=== PATIENT | female | born 1985 | race Caucasian/White ===

== ENCOUNTER 2017-04-09 02:26 | Emergency (ER) | payer OTHER ==
--- NOTE | ~2017-04-09 | EKG ---
PATIENT: CASSANDRA CARDONA UNIT #: [id number] Ventricular Rate: 59 BPM Atrial Rate: 59 BPM P-R Interval: 166 ms QRS Duration: 86 ms Q-T Interval: 446 ms QTC Calculation(Bezet): 441 ms P [place]: 30 degrees Calculated R [place]: 14 degrees Calculated T [place]: 23 degrees Diagnosis Line: Sinus bradycardia with sinus arrhythmia Diagnosis Line: Otherwise normal ECG Diagnosis Line: When compared with ECG of 10-OCT-2015 22:36, Diagnosis Line: Vent. rate has decreased BY 40 BPM Diagnosis Line: Confirmed by ESME PEDERSON MD ([id number]) on Diagnosis Line: 04/09/2017 2:02:58 PM INTERPRETING MD: DACIA CARABALLO
== END 2017-04-09 07:27 | disposition home or self-care (01) ==
LOC: CED 02:26
DX: R55 Syncope and collapse (principal); S30.0XXA Contusion of lower back and pelvis, initial encounter; F17.200 Nicotine dependence, unspecified, uncomplicated; Z88.7 Allergy status to serum and vaccine; W18.39XA Other fall on same level, initial encounter; Y93.89 Activity, other specified; Y92.007 Garden or yard of unspecified non-institutional (private) residence as the place of occurrence of the external cause
CPT/HCPCS: 84703; 93005; 99283

== ENCOUNTER 2017-06-05 15:55 | Emergency (ER) | payer OTHER ==
--- NOTE | ~2017-06-05 | CR142 ---
[facility]. [facility] A Service of [facility] RADIOLOGY TEXT RESULTS PATIENT: CASSANDRA CARDONA LOCATION: SED : 81 UNIT #: [id number] AGE: [address]: Adriana Muller SEX: F ORDER DR: [id number] [address] [address] [id number] E MR#: [id number] Acc #: [id number] NAME: CASSANDRA CARDONA : 1985 SEX: F STUDY DATE/TIME: 06/05/2017 16:12 UNIT: SED ROOM: STUDY DESCRIPTION: CR Hand Min 3 Views Rt Attending Physician: Adriana Muller P.A.-C. Ordering Physician: Adriana Muller P.A.-C. MEDICAL IMAGING REPORT This report is preliminary unless electronic signature is present. EXAM Right hand 3 views 06/05/2017 HISTORY Right hand pain status post fall today at 01:00 p.m., landing on right hand. FINDINGS AP, lateral, and oblique projections of the hand show good mineralization with normal carpal, metacarpal, and phalangeal anatomy without indication of fracture, dislocation, or soft tissue radiopaque foreign body. IMPRESSION Normal hand. Dictated by... Jose Aguirre M.D. THIS IS AN ELECTRONICALLY VERIFIED REPORT Jose Aguirre M.D. at 06/06/2017 10:23 AM KRT/pcl TD: 06/05/2017 20:53 JOB #: [id number] MEDICAL IMAGING REPORT Page 1 of 1
[2017-06-05] MEDS ORDERED: VITAMIN B122500 MC1 (15:58)
== END 2017-06-05 17:15 | disposition home or self-care (01) ==
LOC: SED 15:55
DX: S63.521A Sprain of radiocarpal joint of right wrist, initial encounter (principal); G43.909 Migraine, unspecified, not intractable, without status migrainosus; F17.210 Nicotine dependence, cigarettes, uncomplicated; Z88.7 Allergy status to serum and vaccine; W01.10XA Fall on same level from slipping, tripping and stumbling with subsequent striking against unspecified object, initial encounter; Y92.009 Unspecified place in unspecified non-institutional (private) residence as the place of occurrence of the external cause
CPT/HCPCS: 29125; 73130; 99283

== ENCOUNTER → 2017-07-08 | Outpatient (CLI) | payer OTHER ==
[~2017-07-08] MED LIST: VITAMIN B122500 MC1
--- NOTE | ~2017-07-08 | CT55 ---
[facility] A Service of [facility] & [facility] RADIOLOGY TEXT RESULTS PATIENT: CASSANDRA WHALEY [facility] UNIT #: [id number] AGE: [address]: Shanthi Saucedo SEX: F ORDER DR: [id number] [facility] [address] [place], [place] [address] [id number] O MR#: [id number] [facility] #: [id number] NAME: CASSANDRA WHALEY : 1985 SEX: F STUDY DATE/TIME: 07/08/2017 11:21 UNIT: [facility] ROOM: STUDY DESCRIPTION: CT Chest W Con Attending Physician: Shanthi Palm A.P.R.N. Referring Physician: Shanthi Palm A.P.R.N. Ordering Physician: Shanthi Palm A.P.R.N. Primary Care Physician: Shanthi Palm A.P.R.N. MEDICAL IMAGING REPORT This report is preliminary unless electronic signature is present EXAM Chest CT with contrast, 07/08/2017. INDICATIONS 32-year-old female with a lung nodule on an abdominal CT 1 year ago. Nodule follow up. History of tubal ligation. No history of malignancy. TECHNIQUE Contrast enhanced CT scan chest was performed. This CT exam was performed with one or more of the following radiation dose reduction techniques: automatic exposure control, adjustment of mA and/or kV according to patient size, and iterative reconstruction. COMPARISON CT abdomen and pelvis 10/11/2015. FINDINGS CT CHEST: Included lung bases are clear. There is an 11 mm nodule in the posteromedial left lower lobe that is unchanged from the prior study of 10/11/2015. Based upon nearly 2 years of stability, this is most likely benign. A followup CT could be performed in October 2017 to document 2 years of stability and confirm benignity. The lungs are otherwise clear. No additional pulmonary nodule. Included thyroid unremarkable. No pericardial effusion. No adenopathy. Aorta unremarkable. Included upper abdomen negative. Osseous structures demonstrate no suspicious bone lesion. IMPRESSION 1. 11 mm noncalcified nodule in the left lower lobe unchanged and likely to be benign given stability of nearly [address] years. A follow up CT in October of 2017 could be performed to confirm benignity. [facility] A Service of [facility] RADIOLOGY TEXT RESULTS PATIENT: CASSANDRA WHALEY LOCATION: [facility] : 81 UNIT #: [id number] AGE: [address]: Shanthi Saucedo SEX: F ORDER DR: 2. The examination is otherwise negative. Dictated by... Connor Mack M.D. THIS IS AN ELECTRONICALLY VERIFIED REPORT Connor Mack M.D. at 07/08/2017 5:07 PM Jhonathan TD: 07/08/2017 16:12 JOB #: [id number] MEDICAL IMAGING REPORT Page 1 of 1 COPY
== END | disposition home or self-care (01) ==
LOC: CCAT 09:20
DX: R91.1 Solitary pulmonary nodule (principal)
CPT/HCPCS: 71260; Q9967